=== PATIENT | female | born 1960 | race Caucasian/White ===

== ENCOUNTER 2021-05-01 01:32 | Emergency (ER) | payer OTHER ==
[2021-05-01 02:29] VITALS: BP 128/82; PULSE 85; RESP 20; TEMP 98.5
[2021-05-01] MEDS ORDERED: IBUPROFEN 600 MG STARTER PACK 4 TAB BTL PO STA (03:05)
[2021-05-01] MEDS ORDERED: Acetaminophen-Codeine 300-30mg TAB PO STA (03:05)
[2021-05-01] MEDS ORDERED: ACET/COD 300 MG/30 MG STARTER PACK 6 TAB BTL PO STA (03:05)
[2021-05-01] MEDS ORDERED: IBUPROFEN 600 MG TAB PO STA (03:05)
[2021-05-01] MEDS ORDERED: PENICILLIN V POTASSIUM 250 MG TAB PO STA (03:05)
[2021-05-01] MEDS ORDERED: DEXAMETHASONE SOD PHOSPHATE 10 MG/ML 1 ML VIAL IM STA (03:05)
[2021-05-01] MEDS ORDERED: traMADol 50 MG STARTER PACK 3 TAB BTL PO STA (03:05)
--- NOTE | 2021-05-01 03:06 | ED ---
ENT HPI - General Chief complaint: Dental/Oral Stated complaint: Dental Pain Time Seen by Provider: 05/01/21 02:26 Source: patient Mode of arrival: ambulatory Limitations: no limitations - Related Data Allergies Allergy/AdvReac Type Severity Reaction Status Date / Time No Known Allergies Allergy Verified 05/01/21 02:29 Review of Systems ROS Statement: Those systems with pertinent positive or pertinent negative responses have been documented in the HPI. ROS Other: All systems not noted in ROS Statement are negative. Past Medical History Past Medical History: Thyroid Disorder History of Any Multi-Drug Resistant Organisms: None Reported Past Surgical History: Hernia Repair, Hysterectomy, Orthopedic Surgery, Tonsillectomy, Tubal Ligation Additional Past Surgical History / Comment(s): lt arm and leg Past Psychological History: ADD/ADHD, Bipolar Smoking Status: Never smoker Past Alcohol Use History: None Reported Past Drug Use History: None Reported General Exam Limitations: no limitations Course Vital Signs 05/01/21 02:25 Temperature 98.5 F Pulse Rate 85 Respiratory 20 Rate Blood Pressure 128/82 O2 Sat by Pulse 97 Oximetry Disposition Clinical Impression: Dental caries, Dental abscess Disposition: HOME SELF-CARE Condition: Fair Instructions (If sedation given, give patient instructions): Dental Abscess (ED), Toothache (ED) Is patient prescribed a controlled substance at d/c from ED?: No Referrals: Nonstaff,Physician [Primary Care Provider] - 1-2 days
== END 2021-05-01 03:34 | disposition home or self-care (01) ==
LOC: EC 01:32
DX: K02.9 Dental caries, unspecified (principal); K04.7 Periapical abscess without sinus
CPT/HCPCS: 99282; J1100

== ENCOUNTER 2021-11-11 07:43 | Emergency (ER) | payer OTHER ==
[2021-11-11 07:47] VITALS: BP 136/81; PULSE 87; RESP 16; TEMP 98.1
[2021-11-11] MEDS ORDERED: PROPARACAINE 0.5% OPHTH DROPS 15 ML BTL LEFT EYE STA (07:50)
[2021-11-11] MEDS ORDERED: TOBRAMYCIN 0.3% OPHTH DROPS 5 ML BTL LEFT EYE STA (07:50)
[2021-11-11] MEDS ORDERED: FLUORESCEIN STRIPS 1 MG STRIP RIGHT EYE ONE (07:50)
--- NOTE | 2021-11-11 08:10 | ED ---
Eye Problem HPI - General Chief complaint: Eye Problems Stated complaint: Eye injury Time Seen by Provider: 11/11/21 07:48 Source: patient, RN notes reviewed Mode of arrival: ambulatory Limitations: no limitations - History of Present Illness Initial comments: This a 61-year-old female presents emergency Department with chief complaint left eye irritation. Patient states she was trying to use tweezers on her eyebrow when her puppy jumped on or if she states that she ran tweezers across her left eye. She has no visual disturbance states is just feels irritated complications scratch. She denies any blurred vision she states is mildly red, mild tearing noted she states her tetanus is up-to-date. - Related Data Allergies Allergy/AdvReac Type Severity Reaction Status Date / Time No Known Allergies Allergy Verified 11/11/21 07:47 Review of Systems ROS Statement: Those systems with pertinent positive or pertinent negative responses have been documented in the HPI. ROS Other: All systems not noted in ROS Statement are negative. Past Medical History Past Medical History: Thyroid Disorder History of Any Multi-Drug Resistant Organisms: None Reported Past Surgical History: Hernia Repair, Hysterectomy, Orthopedic Surgery, Tonsillectomy, Tubal Ligation Additional Past Surgical History / Comment(s): lt arm and leg Past Psychological History: ADD/ADHD, Bipolar Smoking Status: Never smoker Past Alcohol Use History: None Reported Past Drug Use History: None Reported General Exam Limitations: no limitations General appearance: alert, in no apparent distress Head exam: Present: atraumatic, normocephalic, normal inspection Eye exam: Present: PERRL, EOMI, conjunctival injection (Mild left), other ( Patient had full relief of symptoms with proparacaine drops, there is fluorescein uptake in the central corneal region). Absent: normal appearance, scleral icterus, periorbital swelling ENT exam: Present: normal exam, normal oropharynx, mucous membranes moist Neck exam: Present: normal inspection. Absent: tenderness, meningismus, lymphadenopathy Respiratory exam: Present: normal lung sounds bilaterally. Absent: respiratory distress, wheezes, rales, rhonchi, stridor Cardiovascular Exam: Present: regular rate, normal rhythm, normal heart sounds. Absent: systolic murmur, diastolic murmur, rubs, gallop, clicks Course Vital Signs 11/11/21 07:44 Temperature 98.1 F Pulse Rate 87 Respiratory 16 Rate Blood Pressure 136/81 O2 Sat by Pulse 98 Oximetry Medical Decision Making - Medical Decision Making Corneal abrasion was identified with Wood's lamp and fluorescein drop. Patient has no visual disturbance. No hyphema patient was placed on Tobrex eyedrops patient will follow-up with ophthalmology return parameters were discussed. Disposition Clinical Impression: Left corneal abrasion Disposition: HOME SELF-CARE Condition: Stable Instructions (If sedation given, give patient instructions): Corneal Abrasion (ED) Additional Instructions: Use Tobrex eyedrops 1 drop every 4 hours for next 5 days Please return to the Emergency Department if symptoms worsen or any other concerns. Is patient prescribed a controlled substance at d/c from ED?: No Referrals: None,Stated [Primary Care Provider] - 1-2 days Matias Franklin MD [STAFF PHYSICIAN] - 1-2 days Time of Disposition: 08:09
== END 2021-11-11 08:20 | disposition home or self-care (01) ==
LOC: EC 07:43
DX: S05.02XA Injury of conjunctiva and corneal abrasion without foreign body, left eye, initial encounter (principal); F90.9 Attention-deficit hyperactivity disorder, unspecified type; F31.9 Bipolar disorder, unspecified; W26.8XXA Contact with other sharp object(s), not elsewhere classified, initial encounter
CPT/HCPCS: 99283

== ENCOUNTER 2022-08-30 00:47 | Emergency (ER) | payer OTHER ==
[2022-08-30 00:58] VITALS: TEMP 98.7
[2022-08-30] MEDS ORDERED: HYDROcodone/APAP 5-325MG 1 EACH TAB PO STA (01:08)
[2022-08-30] MEDS ORDERED: KETOROLAC 15 MG/ML 1 ML VIAL IM STA (01:08)
--- NOTE | 2022-08-30 01:14 | ED ---
Fall HPI - General Chief Complaint: Head Injury Stated Complaint: Seizure, hit head on concrete Time Seen by Provider: 08/30/22 01:00 Source: patient, RN notes reviewed Mode of arrival: ambulatory Limitations: no limitations - History of Present Illness Initial Comments: This is a 62-year-old female who presents to the emergency department for a fall. Patient states that she has stress-induced seizures, which are a chronic and ongoing problem for her. Reports taking her medication as prescribed without any missed doses. She is in the process of training a new service dog, who is supposed to brace her fall. However, when they were playing earlier, she had thrown the toy and she proceeded to have a seizure while the dog was chasing after the toy, and it did not brace her fall. States that when she has a seizure she only loses consciousness for 1-2 seconds. However, in this timeframe, she fell forward and hit her face on the concrete. States that she did try to brace her fall with her arms and is complaining of left shoulder pain as well. She did have surgery on the left shoulder in the past, and wants to make sure that this is not disrupted. She's not taken anything for her pain. Her last tetanus vaccine was about 4 years ago. Denies any fevers, chills, sore throat, cough, dyspnea, chest pain, palpitations, abdominal pain, nausea, vomiting, diarrhea, or back pain. Complaint: fall - Related Data Allergies Allergy/AdvReac Type Severity Reaction Status Date / Time No Known Allergies Allergy Verified 11/11/21 07:47 Review of Systems ROS Statement: Those systems with pertinent positive or pertinent negative responses have been documented in the HPI. ROS Other: All systems not noted in ROS Statement are negative. Past Medical History Past Medical History: Thyroid Disorder Additional Past Medical History / Comment(s): scar tissue in throat History of Any Multi-Drug Resistant Organisms: None Reported Past Surgical History: Hernia Repair, Hysterectomy, Orthopedic Surgery, Tonsillectomy, Tubal Ligation Additional Past Surgical History / Comment(s): lt arm and leg Past Psychological History: ADD/ADHD, Bipolar Smoking Status: Never smoker Past Alcohol Use History: None Reported Past Drug Use History: None Reported General Exam Limitations: no limitations General appearance: alert, in no apparent distress Head exam: Present: other (Scabbed over laceration to the lateral aspect of the left eyebrow. No active bleeding. Surrounding ecchymosis and swelling.) Eye exam: Present: other (Left periorbital ecchymosis) Respiratory exam: Present: normal lung sounds bilaterally. Absent: respiratory distress, wheezes, rales, rhonchi, stridor Cardiovascular Exam: Present: regular rate, normal rhythm, normal heart sounds. Absent: systolic murmur, diastolic murmur, rubs, gallop, clicks Extremities exam: Present: other (No gross deformities to the left shoulder. Active and passive range of motion induces pain. 2+ radial pulses.) Neurological exam: Present: alert, oriented X3, CN II-XII intact Psychiatric exam: Present: normal affect, normal mood Skin exam: Present: warm, dry, intact, normal color. Absent: rash Course Vital Signs 08/30/22 08/30/22 00:51 03:14 Temperature 98.7 F Pulse Rate 86 79 Respiratory 19 20 Rate Blood Pressure 137/88 131/87 O2 Sat by Pulse 98 99 Oximetry Medical Decision Making - Medical Decision Making This is a 62-year-old female who presents to the emergency department for a fall. Was pt. sent in by a medical professional or institution? @ -No Did you speak to anyone other than the patient for history? @ -No Did you review nursing and triage notes? @ -Yes, and I agree, it is accurate with regards to the patient's symptoms. Were old charts reviewed? @ -No Differential Diagnosis? @ -Differential Diagnosis Head Injury: Contusion, hematoma, intracranial hemorrhage, skull fracture, whiplash, concussion, this is not meant to be an all-inclusive list. X-rays interpreted by me (1pt min.)? @ -X-ray of the left shoulder obtained. My interpretation identifies no acute fractures or dislocations. CT interpreted by me (1pt min.)? @ -Computed tomography scan of the brain, facial bones, and c-spine obtained. My interpretation identifies no evidence of an acute intracranial hemorrhage, skull fracture, or cervical spine fracture. What testing was considered but not performed? (CT, X-rays, U/S, labs)? Why? @ -None What meds were considered but not given? Why? @ -None Did you discuss the management of the patient with other professionals? @ -No Did you reconcile home meds? @ -No Was smoking cessation discussed for >3mins.? @ -No Was critical care preformed (if so, how long)? @ -No Were there social determinants of health that impacted care today? How? (Homelessness, low income, unemployed, alcoholism, drug addiction, transportation, low edu. Level, literacy, decrease access to med. care, long term, rehab)? @ -No Was there de-escalation of care discussed even if they declined? (Discuss DNR or withdrawal of care, Hospice)? @ -No What co-morbidities impacted this encounter? (DM, HTN, Smoking, COPD, CAD, Cancer, CVA, Hep., AIDS, mental health diagnosis, sleep apnea, morbid obesity)? @ -Seizure disorder Was patient admitted / discharged? @ -Discharged. Computed tomography scan of the brain, C-spine, and facial bones obtained revealing no acute findings. XR of the left shoulder reveals no irregularities. Symptoms well controlled with Toradol and [place]. She had a minor superficial laceration just lateral to the left eyebrow. She was concerned about the bleeding and requested closure. Exofin applied. Her tetanus status is up-to-date. She is advised to continue taking her seizure medication as prescribed and have close follow-up with her primary care provider. She is also instructed to alternate with ibuprofen and tylenol for pain relief and apply ice to the areas of pain for 10-15 minutes every 2-3 hours for the first 2-3 days followed by heat there afterwards. Undiagnosed new problem with uncertain prognosis? @ -None Drug Therapy requiring intensive monitoring for toxicity (Heparin, Nitro, Insulin, Cardizem)? @ -None Were any procedures done? @ -None Diagnosis/symptom? @ -Closed head injury, fall Acute, or Chronic, or Acute on Chronic? @ -Acute Uncomplicated (without systemic symptoms) or Complicated (systemic symptoms)? @ -Uncomplicated Side effects of treatment? @ -None Exacerbation, Progression, or Severe Exacerbation] @ -Not applicable Poses a threat to life or bodily function? @ -No Diagnosis/symptom? @ -Seizure disorder Acute, or Chronic, or Acute on Chronic? @ -Chronic Uncomplicated (without systemic symptoms) or Complicated (systemic symptoms)? @ -Uncomplicated Side effects of treatment? @ -None Exacerbation, Progression, or Severe Exacerbation] @ -Exacerbation Poses a threat to life or bodily function? @ -No Return precautions reviewed in depth, the patient is instructed to return to the emergency department with any new, worsening, or concerning symptoms. Patient verbalized understanding. This case was discussed in detail with the attending ED physician, Dr. Crespo. Presentation, findings, and treatment plan discussed in detail as well. - Radiology Data Radiology results: report reviewed, image reviewed Disposition Clinical Impression: Closed head injury, Seizure Disposition: HOME SELF-CARE Instructions (If sedation given, give patient instructions): Head Injury (ED), Skin Adhesive Care (ED) Additional Instructions: Return to the emergency department with any new, worsening, or concerning symptoms. Keep the area dry, do not apply topical medications, and do not rub, scratch, or pick at the wound. The adhesive will naturally fall off within 5-10 days. Alternate with ibuprofen and Tylenol as needed for pain relief. Apply ice to the affected areas for 10-15 minutes every 2-3 hours. Follow up with your primary care provider in 1-2 days. Is patient prescribed a controlled substance at d/c from ED?: No Referrals: None,Stated [Primary Care Provider] - 1-2 days
--- NOTE | 2022-08-30 01:50 | XR ---
EXAMINATION TYPE: XR shoulder complete LT DATE OF EXAM: 08/30/2022 COMPARISON: NONE HISTORY: Pain TECHNIQUE: 3 views FINDINGS: There is no evidence of fracture nor dislocation. Joint spaces are normal. No pathologic ca lcifications at the greater tuberosity. There is spurring of the humeral head. AC joint is intact. 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 No fracture.
--- NOTE | 2022-08-30 02:13 | CT ---
EXAMINATION TYPE: CT brain sidneyine wo con DATE OF EXAM: 08/30/2022 COMPARISON: None HISTORY: SEIZURE APPROX 08/29. FELL & HIT HEAD ON CONCRETE. CT DLP: 565.45 mGycm Automated exposure control for dose reduction was used. Images of the brain and cervical spine obtained with no contrast. Ventricles and sulci appear normal. There is no mass effect or midline shift. No sign of intracranial hemorrhage. Calvarium is intact. There is normal aeration of the mastoid sinuses. Skull base is inta ct. The cervical vertebra have normal alignment. There is degenerative disc space narrowing at C3-4 C5-6 and C6-7. Facet joints are intact. Prevertebral soft tissues are intact. No compression fracture. IMPRESSION: Negative CT scan of the brain. Spondylotic changes in the cervical spine. No fracture seen.
--- NOTE | 2022-08-30 02:17 | CT ---
EXAMINATION TYPE: CT facial bones wo con DATE OF EXAM: 08/30/2022 COMPARISON: None HISTORY: SEIZURE APPROX 08/29. FELL & HIT HEAD ON CONCRETE. CT DLP: 565.45 mGycm Automated exposure control for dose reduction was used. Images obtained from the bottom of the mandible to the top of the frontal sinuses with no contrast. The mandibular ring is intact. The zygomatic arches are intact. Maxilla is intact. Nasal bone is with in normal limits. The orbital margins are intact. No evidence of orbital blowout fracture. There is fairly normal aerat ion of the paranasal sinuses. The sella turcica appears normal. There is left-sided lateral periorbital soft tissue swelling. No fracture seen. IMPRESSION: Left lateral periorbital soft tissue swelling. No fracture seen.
[2022-08-30] MEDS ORDERED: TOPICAL SKIN ADHESIVE 1 EACH AMP TOPICAL ONE (02:32)
[2022-08-30] MEDS ORDERED: ACET/COD 300 MG/30 MG STARTER PACK 6 TAB BTL PO STA (02:33)
[2022-08-30] MEDS ORDERED: IBUPROFEN 600 MG STARTER PACK 4 TAB BTL PO STA (02:33)
[2022-08-30 03:17] VITALS: BP 131/87; PULSE 79; RESP 20
== END 2022-08-30 03:16 | disposition home or self-care (01) ==
LOC: EC 00:47
DX: S09.90XA Unspecified injury of head, initial encounter (principal); R56.9 Unspecified convulsions; M47.812 Spondylosis without myelopathy or radiculopathy, cervical region; M50.322 Other cervical disc degeneration at C5-C6 level; F90.9 Attention-deficit hyperactivity disorder, unspecified type; F31.9 Bipolar disorder, unspecified; W22.09XA Striking against other stationary object, initial encounter
CPT/HCPCS: 73030; 72125; 70486; 70450; 99284; 96372; J1885

== ENCOUNTER → 2024-10-23 | Outpatient (CLI) | payer OTHER | END | disposition home or self-care (01) | LOC: LABWHC1 09:08 | PROVIDERS: ATTEND Nurse Practitioner Family | DX: Z77.120 Contact with and (suspected) exposure to mold (toxic) (principal) | CPT/HCPCS: 87070; 87205 ==